=== PATIENT | female | born 1940 | race African-American/Black ===

== ENCOUNTER 2019-07-10 11:55 | Emergency (ER) | payer OTHER ==
[~2019-07-10] VITALS: Ht 170.2 cm; Wt 74.8 kg
[~2019-07-10 11:55] MED LIST: AMLODIPINE BESY10 MG PO; BENAZEPRIL HCL40 MG PO; POTASSIUM99 M1 PO; TRIAMTERENE-HC1 EAC3 PO
[2019-07-10] MEDS ORDERED: HYDROCHLOROTH12.5 M1 PO (12:00)
[2019-07-10 12:45] VITALS: BP 145/82
[2019-07-10] MEDS ORDERED: BENADRYL ITCH28.3 G1 TOP (12:54)
[2019-07-10] MEDS ORDERED: PREDNISONE 20 M20 MG PO (12:54)
[2019-07-10] MEDS ORDERED: BENADRYL25 MG PO (12:54)
[2019-07-10] MEDS ORDERED: AMLODIPINE BESY10 MG PO (12:56)
[2019-07-10] MEDS ORDERED: BENAZEPRIL HCL40 MG PO (12:56)
== END 2019-07-10 13:07 | disposition home or self-care (01) ==
LOC: ER 11:55
DX: S00.262A Insect bite (nonvenomous) of left eyelid and periocular area, initial encounter (principal); I10 Essential (primary) hypertension; W57.XXXA Bitten or stung by nonvenomous insect and other nonvenomous arthropods, initial encounter; Y92.89 Other specified places as the place of occurrence of the external cause; Y93.89 Activity, other specified; Y99.8 Other external cause status